=== PATIENT | female | born 1985 | race Caucasian/White ===

== ENCOUNTER → 2018-10-19 08:47 | Outpatient (POV) | payer OTHER, SELFPAY | PROVIDERS: Visit Provider Specialist | DX: M25.532 Pain in left wrist (principal); M25.531 Pain in right wrist; R20.0 Anesthesia of skin; R20.2 Paresthesia of skin | CPT/HCPCS: 95886; 95908 ==

== ENCOUNTER → 2019-06-11 17:17 | Outpatient (CLI) | payer OTHER, SELFPAY ==
--- NOTE | 2019-06-11 17:18 | MM_ITS ---
PROCEDURE: MM DIG SCREENING MAMM BI W/CAD CLINICAL INDICATION: Routine Mamm Screnning with Family Hx of Breast CA There has been a previous biopsy on each breast for benign disease. COMPARISON: [facility]MSS DIG MAMM-SURGICAL SPECIMEN from 02/07/2014 DMDBAV DIG MAMM-DX CALISTA W ADD VIEWS from 06/28/2014 DMSB DIG MAMM-SCREEN CALISTA from 09/18/2015 TECHNIQUE: Standard CC and MLO images were obtained. R2 CAD reviewed. FINDINGS: There is a diffusely dense and heterogenic parenchymal pattern somewhat lessening the sensitivity of mammography. There are biopsy clips in both breast which have been noted on the previous studies. There is a stable nodular density near the axillary tail right breast likely a low-lying node. There is no suspicious lesion and no suspicious microcalcifications. IMPRESSION: Stable exam with no suspicious lesions seen BI-RAD Category: 2 Benign Finding(s) FOLLOW-UP: 1YR 1 Year Follow-up (A letter has been sent to the patient regarding results of the study.) Dictated by: Dr. Vinny Vance MD 06/14/2019 10:[address] Vinny Vance MD in [place] 06/14/2019 10:38
== END ==
PROVIDERS: Visit Provider Nurse Practitioner Obstetrics & Gynecology
DX: Z12.31 Encounter for screening mammogram for malignant neoplasm of breast (principal); Z80.3 Family history of malignant neoplasm of breast
CPT/HCPCS: 77067

== ENCOUNTER → 2019-09-06 14:26 | Outpatient (CLI) | payer OTHER, SELFPAY ==
--- NOTE | 2019-09-06 14:30 | US_ITS ---
PROCEDURE: US THYROID CLINICAL INDICATION: THYROID NODULE COMPARISON: No exams were available for comparison FINDINGS: Right lobe: 0.9 x 3.8 x 1.2 centimeters Left lobe: 0.8 x 3.1 x 1.0 centimeters Isthmus: 1.2 millimeters Additional findings: There is no discrete lesion. IMPRESSION: No focal pathology. Dictated by: Manuel Brooke 09/06/2019 18:05 Electronically signed by Manuel Brooke in [place] 09/06/2019 18:05
== END ==
PROVIDERS: PCP Nurse Practitioner Family; Visit Provider Nurse Practitioner Family
DX: E04.1 Nontoxic single thyroid nodule (principal)
CPT/HCPCS: 76536

== ENCOUNTER → 2020-06-19 13:28 | Outpatient (CLI) | payer OTHER, SELFPAY ==
--- NOTE | 2020-06-19 13:29 | MM_ITS ---
PROCEDURE: MM DIG SCREENING MAMM BI W/CAD Digital Breast Tomosynthesis Included CLINICAL INDICATION: screening xmg There is no personal or family history of breast cancer. There have been previous biopsies on each breast for benign disease. COMPARISON: MG DMDBAV DIG MAMM-DX CALISTA W ADD VIEWS from 06/28/2014 MG DMSB DIG MAMM-SCREEN CALISTA from 09/18/2015 MG MM DIG SCREENING MAMM BI W/CAD from 06/11/2019 TECHNIQUE: Standard CC and MLO images and 3D Tomosynthesis was obtained. R2 CAD reviewed. FINDINGS: Moderate diffuse somewhat heterogenic fibroglandular densities are seen in both breasts. The findings of bilateral and symmetrical. Again noted are the biopsy clips in each breast. There is a stable benign-appearing nodular density near the axillary tail right breast likely a low-lying node. There has been some mild progressive fatty replacement of the breast parenchyma when compared to the previous 3 studies. There is no new or suspicious lesion in either breast and no suspicious microcalcifications. IMPRESSION: Stable moderate breast density with no suspicious lesions seen BI-RAD Category: 2 Benign Finding(s) FOLLOW-UP: 1YR 1 Year Follow-up (A letter has been sent to the patient regarding results of the study.) Dictated by: Dr. Vinny Vance MD 06/20/2020 10:42 Dr. Vinny Vance MD in [place] 06/20/2020 10:42
== END ==
PROVIDERS: PCP Nurse Practitioner Family; Visit Provider Nurse Practitioner Obstetrics & Gynecology
DX: Z12.31 Encounter for screening mammogram for malignant neoplasm of breast (principal)
CPT/HCPCS: 77063; 77067

== ENCOUNTER 2022-04-03 11:22 | Emergency (ER) | payer OTHER, SELFPAY ==
--- NOTE | 2022-04-03 11:48 | XR_ITS ---
FINAL REPORT CLINICAL HISTORY: fall x 1 wk ago, pain x 2-3 days FINDINGS: LUMBAR SPINE Three views were obtained. There is no acute fracture. There is no malalignment. There are mild degenerative changes with small osteophytes. There is no soft tissue abnormality. IMPRESSION: No acute bony abnormality. Reviewed, Interpreted and Dictated by Zana Sloan III, MD Transcribed by Sari Wang Authenticated and . [facility]
--- NOTE | 2022-04-03 11:48 | XR_ITS ---
FINAL REPORT CLINICAL HISTORY: fall x 1 wk ago, pain x 2-3 days FINDINGS: SACRUM/COCCYX Three views were obtained. There is no acute fracture or dislocation. The joint spaces are intact. There is no soft tissue abnormality. IMPRESSION: No acute bony abnormality. Reviewed, Interpreted and Dictated by Zana Sloan III, MD Transcribed by Sari Wang Authenticated and [facility]
--- NOTE | 2022-04-03 11:49 | HMH.EDUTC ---
[facility] [place] Clinical Impression: Coccyx pain Right foot sprain Qualifiers: Encounter type: initial encounter Qualified Code(s): S93.601A - Unspecified sprain of right foot, initial encounter Disposition: Home, Self-Care Condition on Discharge: Good Instructions: Ankle Sprain, DI for Ankle Sprain, DI for Coccydynia Additional Instructions: Go home and rest. It would be best if you rested tomorrow too. No heavy lifting. No twisting for the next few days. Follow up with your regular doctor. GO TO THE ER FOR ANY WORSENING SYMPTOMS OR CONCERN, ESPECIALLY BOWEL OR BLADDER ISSUES, SADDLE AREA NUMBNESS, FEVER, ETC Prescriptions: Ibuprofen [Ibuprofen 600mg Tablet] 600 mg PO Q6HP PRN #30 tab PRN Reason: Mild Pain Transmission Status: Received by [facility] Referrals: Karma Kaplan APRN [Primary Care Provider] - Time of Disposition: 13:18 Medical Decision Making - Medical Records Medical records reviewed: No: I reviewed the patient's medical records. - Lon Inquiry Pt receiving controlled substance: No Vital Signs: 04/03/22 11:58 04/03/22 13:22 Temperature 98.0 F 98.0 F Temperature Source Oral Pulse Rate 82 Pulse Rate [Left] 82 Respiratory Rate 16 16 Blood Pressure 110/68 Blood Pressure [Right Arm] 110/68 Blood Pressure Mean [Right Arm] 82 02 Sat by Pulse Oximetry 96 [facility] [place] - General Stated complaint: xray on tail bone Time Seen by Provider: 04/03/22 11:49 - History of Present Illness Provider Complaint: She states that she fell and came down on her tail bone 2 days ago. She is having coccyx pain and low back pain. - Related Data Home Medications Medication Instructions Recorded Confirmed levothyroxine 88 mcg tablet mcg PO 08/14/20 09/17/21 multivitamin 1 tab PO DAILY 08/14/20 09/17/21 selenium 200 mcg capsule 200 mcg PO DAILY 08/14/20 09/17/21 vitamin B complex 1 tab PO DAILY 08/14/20 09/17/21 cholecalciferol (vitamin D3) 125 125 mcg PO DAILY 09/17/21 09/17/21 mcg (5,000 unit) capsule lamotrigine 100 mg tablet mg PO 09/17/21 09/17/21 sumatriptan succinate 50 mg tablet mg PO 09/17/21 09/17/21 zinc 50 mg tablet 50 mg PO DAILY 09/17/21 09/17/21 ziprasidone HCl 20 mg capsule mg PO 09/17/21 09/17/21 Previous Rx's Medication Instructions Recorded Ibuprofen [Ibuprofen 600mg 600 mg PO Q6HP PRN #30 tab 04/03/22 Tablet] Allergies Allergy/AdvReac Type Severity Reaction Status Date / Time risperidone Allergy Severe BRADYCARDIA Verified 04/03/22 12:00 [facility] History - Hepatitis A Screen Attestation statement:: This patient has been screened for Hepatitis A risk factors. I have reviewed the patient's past medical history: Yes Medical History: Reports:: Depression Other Surgeries: Yes: Other Amputation: No Fractures: No Comment: L breast aductal excision 01/2014. R breast aductal excision 03/2014 - Social History Smoking Status: Current every day smoker Tobacco Type: e-cigarettes Alcohol Intake: never Substance Use Type: denies use Occupational Status: employed - Psychiatric History Pschychiatric History:: Reports:: Bipolar Disorder, Depression, Psychiatric Treatment Family Hx:: Hypertension, Cancer Comment: Sibling with chemical dependency ROS Obtained: Yes All systems reviewed & no additional complaints - Constitutional Constitutional: Denies chills, Denies fever(s) - Genitourinary Female Genitourinary: Denies dysuria, Denies urinary frequency, Denies urinary incontinence, Denies urinary hesitancy, Denies urinary urgency - Musculoskeletal Musculoskeletal: Reports as per HPI - Integumentary/Breasts Skin/Breast: Denies rash Physical Exam - General General appearance: alert, in no apparent distress - Head Head exam: atraumatic, normocephalic, normal inspection - Eye Eye exam: Present: normal appearance, PERRL, EOMI - ENT ENT exam: Present: normal exam, normal oropharynx, mucous membranes moist,
[2022-04-03 11:58] VITALS: BP 110/68; PULSE 82; RESP 16; TEMP 36.7; O2SAT 96; BMI 25.7
--- NOTE | 2022-04-03 12:39 | XR_ITS ---
FINAL REPORT CLINICAL HISTORY: fall FINDINGS: RIGHT ANKLE: Three views of the right ankle were obtained. There is no acute fracture or dislocation. The joint spaces and mortise are intact. There is no soft tissue abnormality. IMPRESSION: No acute bony abnormality. Reviewed, Interpreted and Dictated by Zana Sloan III, MD Transcribed by Marion Meade Authenticated and [facility]
--- NOTE | 2022-04-03 12:39 | XR_ITS ---
FINAL REPORT CLINICAL HISTORY: fall FINDINGS: RIGHT FOOT: Three views of the right foot were obtained. There is no acute fracture or dislocation. The joint spaces are intact. There is no soft tissue abnormality. IMPRESSION: No acute bony abnormality. Reviewed, Interpreted and Dictated by Zana Sloan III, MD Transcribed by Marion Meade Authenticated and [facility]
[2022-04-03 13:22] VITALS: BP 110/68; PULSE 82; RESP 16; TEMP 36.7
== END 2022-04-03 13:22 | disposition home or self-care (01) ==
PROVIDERS: Emergency Provider Nurse Practitioner Family; PCP Nurse Practitioner Family
DX: M53.3 Sacrococcygeal disorders, not elsewhere classified (principal); S93.601A Unspecified sprain of right foot, initial encounter
CPT/HCPCS: 72100; 72220; 73610; 73630; 99213; G0463

== ENCOUNTER → 2022-07-29 21:24 | Outpatient (CLI) | payer OTHER, SELFPAY ==
[2022-07-29 18:33] LABS: Alanine Aminotransferase 16 U/L (12-78); Albumin Level 4.7 g/dl (3.5-5.0); Alkaline Phosphatase 71 U/L (38-126); Anion Gap 13.4 mEq/L (5-15); Aspartate Amino Transferase 26 U/L (14-36); Bilirubin,Total 0.4 mg/dl (0.2-1.3); Blood Urea Nitrogen 6 mg/dl (7-17); Calcium 9.6 mg/dl (8.4-10.2); Carbon Dioxide 26 mmol/L (22.0-30.0); Chloride 104 mmol/L (98-107); Cholesterol 143 mg/dl (140-200); Estimated Glomerular Filt Rate 94 ml/min (>60); GFR (African American) 113 ML/MIN (>60); Globulin 2.4 g/dL (1.3-3.2); Glucose 100 mg/dl (74-100); HDL Cholesterol 48 mg/dl (40-60); Potassium 4.4 mmoL/L (3.5-5.1); Sodium 139 mmol/L (136-145); Total Protein,Serum 7.1 g/dl (6.3-8.2); Triglycerides 62 mg/dl (30-150); VLDL Cholesterol 12 mg/dL (0-40)
[2022-07-29 18:43] LABS: Basophils % 0.8 % (0.1-2.0); Eosinophils % 0.3 % (0.1-12.0); Hematocrit 38.1 % (37.0-47.0); Hemoglobin 12.3 g/dL (12.2-16.2); Lymphocytes # 1.3 K/mm3 (0.7-4.5); Mean Corpuscular HGB Conc 32.4 g/dL (31.8-35.4); Mean Corpuscular Hemoglobin 28.9 pg (27.0-31.2); Mean Corpuscular Volume 89.4 fl (81-99); Mean Platelet Volume 7.9 fl (7.4-10.4); Monocytes # 0.3 K/mm3 (0.1-1.0); Monocytes % 5.5 % (1.7-9.3); Neutrophils # 4.1 K/mm3 (1.8-7.8); Neutrophils % 70.5 % (37.0-80.0); Platelet Count 394 K/mm3 (142-424); Red Blood Count 4.26 M/mm3 (4.20-5.40); Red Cell Distribution Width 12.9 % (11.5-17.5); White Blood Count 5.8 K/mm3 (4.8-10.8)
[2022-07-29 18:45] LABS: Direct LDL Cholesterol 71.51 mg/dL (100-129)
[2022-07-29 18:51] LABS: 25-OH Vitamin D, Total 50.3 ng/mL (30-100)
[2022-07-29 19:24] LABS: Vitamin B12 938 pg/mL (239-931)
== END ==
PROVIDERS: Visit Provider Physician Assistant
DX: E03.9 Hypothyroidism, unspecified (principal)
CPT/HCPCS: 80053; 80061; 82306; 82607; 84443; 85025

== ENCOUNTER → 2023-01-06 13:28 | Outpatient (CLI) | payer OTHER, SELFPAY ==
[2023-01-06 14:25] LABS: Alanine Aminotransferase 20 U/L (12-78); Albumin Level 4.7 g/dl (3.5-5.0); Albumin/Globulin Ratio 1.9 (1.1-1.8); Alkaline Phosphatase 73 U/L (38-126); Anion Gap 12.3 mEq/L (5-15); Aspartate Amino Transferase 28 U/L (14-36); Bilirubin,Total 0.6 mg/dl (0.2-1.3); Blood Urea Nitrogen 10 mg/dl (7-17); Calcium 8.8 mg/dl (8.4-10.2); Carbon Dioxide 24 mmol/L (22.0-30.0); Chloride 106 mmol/L (98-107); Chol/HDL Ratio 3.2 (1-3.5); Cholesterol 161 mg/dl (140-200); Estimated Glomerular Filt Rate 111 ml/min (>60); GFR (African American) 135 ML/MIN (>60); Globulin 2.5 g/dL (1.3-3.2); Glucose 86 mg/dl (74-100); HDL Cholesterol 51 mg/dl (40-60); Potassium 4.3 mmoL/L (3.5-5.1); Sodium 138 mmol/L (136-145); Total Protein,Serum 7.2 g/dl (6.3-8.2); Triglycerides 71 mg/dl (30-150); VLDL Cholesterol 14 mg/dL (0-40)
[2023-01-06 14:32] LABS: Basophils % 0.6 % (0.1-2.0); Eosinophils # 0.1 K/mm3 (0.0-0.4); Eosinophils % 2.2 % (0.1-12.0); Hematocrit 39.3 % (37.0-47.0); Hemoglobin 12.4 g/dL (12.2-16.2); Lymphocytes # 1.2 K/mm3 (0.7-4.5); Lymphocytes % 24.3 % (10-50); Mean Corpuscular HGB Conc 31.5 g/dL (31.8-35.4); Mean Corpuscular Hemoglobin 28.2 pg (27.0-31.2); Mean Corpuscular Volume 89.3 fl (81-99); Mean Platelet Volume 7.7 fl (7.4-10.4); Monocytes # 0.3 K/mm3 (0.1-1.0); Monocytes % 5.9 % (1.7-9.3); Neutrophils # 3.2 K/mm3 (1.8-7.8); Neutrophils % 66.9 % (37.0-80.0); Platelet Count 453 K/mm3 (142-424); White Blood Count 4.8 K/mm3 (4.8-10.8)
[2023-01-06 14:36] LABS: Direct LDL Cholesterol 96.05 mg/dL (100-129)
[2023-01-06 14:40] LABS: 25-OH Vitamin D, Total 65.6 ng/mL (30-100)
[2023-01-06 14:55] LABS: Thyroid Stimulating Hormone 2.35 uIU/mL (0.465-4.68)
[2023-01-06 15:14] LABS: Vitamin B12 824 pg/mL (239-931)
== END ==
PROVIDERS: PCP Physician Assistant; Visit Provider Physician Assistant
DX: E03.9 Hypothyroidism, unspecified (principal)
CPT/HCPCS: 80053; 80061; 82306; 82607; 84443; 85025

== ENCOUNTER → 2023-03-17 16:04 | Outpatient (CLI) | payer OTHER, SELFPAY ==
[2023-03-17 19:13] LABS: Chol/HDL Ratio 2.9 (1-3.5); Cholesterol 146 mg/dl (140-200); HDL Cholesterol 51 mg/dl (40-60); Iron 56 ug/dL (37-170); Triglycerides 126 mg/dl (30-150); VLDL Cholesterol 25 mg/dL (0-40)
[2023-03-17 19:24] LABS: Total Iron Binding Capacity 366 ug/dL (265-497)
[2023-03-17 19:25] LABS: Direct LDL Cholesterol 73.71 mg/dL (100-129)
[2023-03-17 19:26] LABS: Total Iron Binding Capacity 371 ug/dL (265-497)
[2023-03-17 19:46] LABS: Thyroid Stimulating Hormone 3.09 uIU/mL (0.465-4.68)
== END ==
LOC: LAB.DROPOF 03-18 07:24
PROVIDERS: PCP Physician Assistant; Visit Provider Physician Assistant
DX: E03.9 Hypothyroidism, unspecified (principal)
CPT/HCPCS: 80061; 83540; 83550; 84443

== ENCOUNTER → 2023-04-15 13:37 | Outpatient (CLI) | payer OTHER, SELFPAY ==
--- NOTE | 2023-04-15 | US_ITS ---
PROCEDURE INFORMATION: Exam: US Left Breast, Complete MG Left Diagnostic Breast Tomosynthesis Exam date and time: 04/15/2023 2:02 PM Age: 37 years old Clinical indication: Left breast palpable lump; palpable area is marked with a skin marker in the left upper inner quadrant. TECHNIQUE: Imaging protocol: Complete ultrasound of all four quadrants of the left breast and the retroareolar regions, including ultrasound of the axilla when performed. Left Diagnostic tomosynthesis and 2D mammography including computer-aided detection (CAD) when performed. Unilateral or bilateral exam. COMPARISON: 1. MG MM DIG SCREENING MAMM BI W/CAD 06/19/2020 1:32 PM 2. MG MM DIG SCREENING MAMM BI W/CAD 06/11/2019 5:24 PM FINDINGS: MAMMOGRAPHY: The breast tissue is extremely dense, which lowers the sensitivity of mammography. There is no stellate mass, architectural distortion or suspicious microcalcifications to suggest malignancy. A skin marker was placed over an area of palpable concern in the anterior left upper inner quadrant. No focal findings on routine or spot compression views. 1.4 cm lobulated mass in the posterior left lower inner quadrant. No skin thickening or axillary adenopathy. ULTRASOUND: Sonographic images of the left breast including the retroareolar region, all 4 quadrants and the axilla do not demonstrate any solid masses. Sonographic images labeled a 7 o'clock axis 3 cm from the nipple the site of palpable concern however the skin marker on the breast on the mammogram places the palpable abnormality in the upper inner quadrant. Clinical correlation is strongly needed. Labeled palpable area left 7 o'clock axis 3 cm from the nipple on sonography is a 1.1 cm cyst most likely corresponding to the mass on mammography. No focal findings in the upper inner quadrant where skin markers placed on the breast to denote palpable area of concern. Additional scattered subcentimeter cysts are noted predominantly in the upper outer quadrant. No architectural distortion or acoustical shadowing. No skin thickening or axillary adenopathy. IMPRESSION: Clinical correlation is strongly needed for the patient's complaint of a palpable abnormality. Cystic change in the left lower inner quadrant most likely correlates with the area of nodularity on mammography. A skin marker should be placed over the area of palpable concern seen on sonography followed by a repeat diagnostic left mammogram to ensure accurate correlation between the mammographic and sonographic findings. ASSESSMENT: BI-RADS Category 0: Incomplete- Need Additional Imaging Evaluation and/or Prior Mammograms for Comparison
== END ==
LOC: RAD 04-16 13:37
PROVIDERS: PCP Physician Assistant; Visit Provider Obstetrics & Gynecology
DX: N63.22 Unspecified lump in the left breast, upper inner quadrant (principal)
CPT/HCPCS: 76641; 77061; 77065; G0279

== ENCOUNTER → 2023-04-30 12:00 | Outpatient (CLI) | payer OTHER, SELFPAY ==
[2023-04-30 18:43] LABS: MANUAL DIFFERENTIAL MANUAL DIFFERENTIAL (MANUAL DIFF)
[2023-04-30 18:57] LABS: Basophils % 0.5 % (0.1-2.0); Eosinophils # 0.1 K/mm3 (0.0-0.4); Eosinophils % 1.9 % (0.1-12.0); Hematocrit 38.7 % (37.0-47.0); Hemoglobin 12.2 g/dL (12.2-16.2); Lymphocytes # 2.1 K/mm3 (0.7-4.5); Lymphocytes % 34.2 % (10-50); Mean Corpuscular HGB Conc 31.5 g/dL (31.8-35.4); Mean Corpuscular Hemoglobin 28.3 pg (27.0-31.2); Mean Corpuscular Volume 89.8 fl (81-99); Mean Platelet Volume 8.5 fl (7.4-10.4); Monocytes # 0.4 K/mm3 (0.1-1.0); Monocytes % 5.8 % (1.7-9.3); Neutrophils # 3.5 K/mm3 (1.8-7.8); Neutrophils % 57.6 % (37.0-80.0); Platelet Count 454 K/mm3 (142-424); Red Blood Count 4.31 M/mm3 (4.20-5.40); Red Cell Distribution Width 13.4 % (11.5-17.5); White Blood Count 6.1 K/mm3 (4.8-10.8)
[2023-04-30 19:33] LABS: Alanine Aminotransferase 19 U/L (12-78); Albumin Level 4.7 g/dl (3.5-5.0); Albumin/Globulin Ratio 1.8 (1.1-1.8); Alkaline Phosphatase 71 U/L (38-126); Anion Gap 13.8 mEq/L (5-15); Aspartate Amino Transferase 25 U/L (14-36); Bilirubin,Total 0.7 mg/dl (0.2-1.3); Blood Urea Nitrogen 11 mg/dl (7-17); Calcium 9.2 mg/dl (8.4-10.2); Carbon Dioxide 28 mmol/L (22.0-30.0); Chloride 102 mmol/L (98-107); Estimated Glomerular Filt Rate 80 ml/min (>60); GFR (African American) 97 ML/MIN (>60); Globulin 2.6 g/dL (1.3-3.2); Glucose 108 mg/dl (74-100); Potassium 3.8 mmoL/L (3.5-5.1); Sodium 140 mmol/L (136-145); Total Protein,Serum 7.3 g/dl (6.3-8.2)
[2023-04-30 19:38] LABS: C-Reactive Protein 0.8 mg/L (0-4)
[2023-04-30 20:06] LABS: Eosinophils % 2 % (0-3); Lymphocytes % 37 % (10-50); Monocytes % 2 % (2-9); Neutrophils % 59 % (42-76); Platelet Estimate Slight Increase; RBC Morphology Normal; Total Cells Counted 100
[2023-04-30 20:09] LABS: Erythrocyte Sedimentation Rate 13 mm/hr (0-20)
[2023-04-30 22:11] LABS: Iron 70 ug/dL (37-170)
== END ==
PROVIDERS: PCP Physician Assistant; Visit Provider Physician Assistant
DX: K92.1 Melena (principal); E03.9 Hypothyroidism, unspecified; R19.4 Change in bowel habit; E83.10 Disorder of iron metabolism, unspecified
CPT/HCPCS: 80053; 83540; 85007; 85014; 85018; 85048; 85049; 85651; 86140

== ENCOUNTER → 2023-05-01 11:20 | Outpatient (CLI) | payer OTHER, SELFPAY ==
[2023-05-07 00:08] LABS: Pancreatic Elastase, Fecal 266 (>200)
== END ==
PROVIDERS: PCP Physician Assistant; Visit Provider Nurse Practitioner
DX: R19.5 Other fecal abnormalities (principal)
CPT/HCPCS: 82656

== ENCOUNTER → 2023-07-24 08:49 | Outpatient (CLI) | payer OTHER, SELFPAY ==
[2023-07-24 19:01] LABS: Coronavirus 19, PCR Not Detected (NotDetected); Influenza A, PCR Not Detected (NotDetected); Influenza B, PCR Not Detected (NotDetected)
== END ==
LOC: LAB.DROPOF 07-25 08:49
PROVIDERS: PCP Physician Assistant; Visit Provider Family Medicine
DX: R09.81 Nasal congestion (principal); R53.1 Weakness; R69 Illness, unspecified
CPT/HCPCS: 87636

== ENCOUNTER 2024-09-03 09:12 | Outpatient (CLI) | payer OTHER, SELFPAY ==
[2024-09-03 09:30] LABS: Basophils # 0.1 K/mm3 (0-0.2); Basophils % 1.1 % (0.1-2.0); Eosinophils # 0.1 K/mm3 (0.0-0.4); Eosinophils % 0.9 % (0.1-12.0); Hematocrit 39.7 % (37.0-47.0); Lymphocytes # 1.5 K/mm3 (0.7-4.5); Lymphocytes % 27.6 % (10-50); Mean Corpuscular HGB Conc 32.7 g/dL (31.8-35.4); Mean Corpuscular Hemoglobin 29.3 pg (27.0-31.2); Mean Corpuscular Volume 89.6 fl (81-99); Mean Platelet Volume 8.3 fl (7.4-10.4); Monocytes # 0.4 K/mm3 (0.1-1.0); Monocytes % 7.6 % (1.7-9.3); Neutrophils # 3.4 K/mm3 (1.8-7.8); Neutrophils % 62.6 % (37.0-80.0); Platelet Count 342 K/mm3 (142-424); Red Blood Count 4.43 M/mm3 (4.20-5.40); White Blood Count 5.4 K/mm3 (4.8-10.8)
[2024-09-03 09:42] LABS: Hemoglobin A1C 5.1 % (4.0-6.0)
[2024-09-03 09:56] LABS: Alanine Aminotransferase 20 U/L (12-78); Albumin Level 4.9 g/dl (3.5-5.0); Albumin/Globulin Ratio 2.5 (1.1-1.8); Alkaline Phosphatase 50 U/L (38-126); Anion Gap 12.3 mEq/L (5-15); Aspartate Amino Transferase 23 U/L (14-36); Bilirubin,Total 0.6 mg/dl (0.2-1.3); Blood Urea Nitrogen 17 mg/dl (7-17); Calcium 9.5 mg/dl (8.4-10.2); Carbon Dioxide 25 mmol/L (22.0-30.0); Chloride 103 mmol/L (98-107); Estimated Glomerular Filt Rate 110 ml/min (>60); GFR (African American) 133 ML/MIN (>60); Glucose 85 mg/dl (74-100); Magnesium 1.8 mg/dl (1.6-2.3); Potassium 4.3 mmoL/L (3.5-5.1); Sodium 136 mmol/L (136-145); Total Protein,Serum 6.9 g/dl (6.3-8.2)
[2024-09-03 10:13] LABS: 25-OH Vitamin D, Total 95.9 ng/mL (30-100)
[2024-09-03 10:45] LABS: Vitamin B12 743 pg/mL (239-931)
[2024-09-03 11:30] LABS: Ferritin 16.4 ng/ml (6.24-137)
[2024-09-05 13:17] LABS: Insulin Level Total 3.8 uIU/mL (2.6-24.9)
[2024-09-06 13:43] LABS: Antinuclear Antibodies (ANA) Negative (Negative)
== END 2024-09-03 23:59 | disposition home or self-care (01) ==
LOC: LAB 09:13
PROVIDERS: PCP Nurse Practitioner Family; Visit Provider Nurse Practitioner Family
DX: R63.4 Abnormal weight loss (principal); G43.909 Migraine, unspecified, not intractable, without status migrainosus; R53.83 Other fatigue; R42 Dizziness and giddiness; E03.9 Hypothyroidism, unspecified; F31.9 Bipolar disorder, unspecified
CPT/HCPCS: 36415; 80053; 82306; 82533; 82607; 82728; 83036; 83525; 83735; 85025; 86038; 86225; 86235

== ENCOUNTER 2025-04-05 08:25 | Outpatient (CLI) | payer OTHER, SELFPAY ==
[2025-04-05 09:16] LABS: Uric Acid 2.9 mg/dl (2.5-6.2)
[2025-04-05 09:34] LABS: Free T4 (Free Thyroxine) 1.07 ng/dl (0.78-2.19)
[2025-04-05 09:35] LABS: T4 (Thyroxine) 7.6 ug/dl (5.53-11.0)
[2025-04-05 09:49] LABS: Thyroid Stimulating Hormone 2.13 uIU/mL (0.465-4.68)
[2025-04-06 08:12] LABS: LH 48.6 mIU/mL (.)
[2025-04-06 11:18] LABS: FSH 15.7 mIU/mL (.); Triiodothyronine (T3) Free 2.6 pg/mL (2.0-4.4)
[2025-04-06 14:12] LABS: Cortisol,AM 7.9 ug/dL (6.2-19.4); RA Latex Turbid. <10.0 IU/mL (<14.0)
[2025-04-06 17:12] LABS: Antinuclear Antibodies, IFA Negative (.)
== END 2025-04-05 23:59 | disposition home or self-care (01) ==
LOC: LAB 08:25
PROVIDERS: PCP Nurse Practitioner Family; Visit Provider Nurse Practitioner Family
DX: N92.6 Irregular menstruation, unspecified (principal); E03.9 Hypothyroidism, unspecified; R79.89 Other specified abnormal findings of blood chemistry; M25.50 Pain in unspecified joint
CPT/HCPCS: 36415; 82024; 82533; 83001; 83002; 84436; 84439; 84443; 84481; 84550; 85651; 86038; 86376; 86431; 86800